=== PATIENT | female | born 1975 | race Caucasian/White ===

== ENCOUNTER 2019-05-17 02:26 | Emergency (ER) | payer BC ==
[2019-05-17] MEDS ORDERED: HYDROmorphone 0.5 MG/0.5 ML Syringe IVPUSH ONE (03:17)
[2019-05-17] MEDS ORDERED: Sodium Chloride 0.9% 1,000 ML IV SCH (03:30)
--- NOTE | 2019-05-17 04:24 | CRLCT ---
INDICATION: Suprapubic pain TECHNIQUE: CT abdomen and pelvis without contrast. COMPARISON: None. FINDINGS: Lower chest: Unremarkable. Liver: Normal in size and attenuation. No masses. Gallbladder and bile ducts: No stones or inflammation. No biliary dilatation. Pancreas: Unremarkable. No mass or inflammation. Spleen: Normal in size. No masses. Adrenal glands: Normal in size. No nodules. Kidneys: Normal in contour without evidence of hydronephrosis. Nonobstructing 3 millimeter stone lower pole left kidney. GI tract: The stomach is unremarkable. There are no dilated loops of large or small intestine. Appendix is seen and is unremarkable. Vasculature: Unremarkable. Pelvis: Bladder is unremarkable. Uterus is anteverted. Minimal fat containing left indirect inguinal hernia. Bones: Unremarkable for age. IMPRESSION: 1. Nephrolithiasis without evidence of ureteral stone or hydronephrosis. 2. Small fat containing left indirect inguinal hernia. Please note that all CT scans at this facility use dose modulation, iterative reconstruction, and/or weight-based dosing when appropriate to reduce radiation dose to as low as reasonably achievable. Dictated by Jamal Kam MD @ May 17 2019 4:17AM Signed by Dr. Jamal Kam @ May 17 2019 4:22AM
[2019-05-17] MEDS ORDERED: cefTRIAXone 1 GM in Sodium Chloride 0.9% 50 ML IV ONE (04:38)
[2019-05-17] MEDS ORDERED: Ketorolac 30 MG/ML SDV IVPUSH ONE (04:47)
--- NOTE | 2019-05-17 04:52 | EDM.PDOC ---
ED HPI GENERAL MEDICAL PROBLEM - General Chief Complaint: Genitourinary Problem Stated Complaint: UTI? KIDNEY STONE? Time Seen by Provider: 05/17/19 03:25 Source of Information: Reports: Patient History Limitations: Reports: No Limitations - History of Present Illness INITIAL COMMENTS - FREE TEXT/NARRATIVE: pt is having supra pupic pain which came on very suddenly. This pain was quite severe at one pint/ It dfinitely gets worse when she voids. Onset: Today, Sudden Duration: Hour(s): Location: Reports: Abdomen Associated Symptoms: Reports: Other (pt did see specks of blood in the urine. 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 Suprapubic Pain Score (Numeric/FACES): 1 - Related Data Allergies Allergy/AdvReac Type Severity Reaction Status Date / Time No Known Allergies Allergy Verified 05/17/19 03:17 Home Meds: Home Meds Acetaminophen [Tylenol Extra Strength] 1,000 mg PO ASDIRECTED PRN 05/17/19 [ History] Ibuprofen 400 mg PO ASDIRECTED 05/17/19 [History] Past Medical History Genitourinary History: Reports: Renal Calculus - Infectious Disease History Infectious Disease History: Reports: Chicken Pox Social & Family History - Tobacco Use Smoking Status *Q: Never Smoker Second Hand Smoke Exposure: No - Caffeine Use Caffeine Use: Reports: None - Recreational Drug Use Recreational Drug Use: No ED ROS GENERAL - Review of Systems Review Of Systems: See Below Constitutional: Reports: No Symptoms HEENT: Reports: No Symptoms Respiratory: Reports: No Symptoms Cardiovascular: Reports: No Symptoms Endocrine: Reports: No Symptoms GI/Abdominal: Reports: Abdominal Pain, Other (pain in supra pupic area. ) : Reports: Dysuria, Frequency, Urgency Musculoskeletal: Reports: No Symptoms ED EXAM, RENAL/ - Physical Exam Exam: See Below Text/Narrative:: pt arrived with supra pupic pain. She did see some specks of blood in the urine. Exam Limited By: No Limitations General Appearance: Alert, Anxious, Moderate Distress Ears: Normal TMs Nose: Normal Inspection Throat/Mouth: Normal Inspection Head: Atraumatic Neck: Normal Inspection Respiratory/Chest: No Respiratory Distress Cardiovascular: Regular Rate, Rhythm GI/Abdominal: Other (pt is having pain n the suprapupic area. i) (Female) Exam: Deferred Rectal (Female) Exam: Deferred Back Exam: Normal Inspection Extremities: Normal Inspection Neurological: Alert, Oriented, Normal Cognition Course - Vital Signs Last Recorded V/S: Last Vital Signs Temp 35.6 C 05/17/19 04:26 Pulse 94 05/17/19 04:26 Resp 14 05/17/19 04:26 BP 115/65 05/17/19 04:26 Pulse Ox 98 05/17/19 04:26 - Orders/Labs/Meds Orders: Active Orders 24 hr Category Date Time Status CULTURE URINE [RM] Stat Lab 05/17/19 04:39 Ordered Sodium Chloride 0.9% [Normal Saline] 1,000 ml Med 05/17/19 03:30 Active IV ASDIRECTED cefTRIAXone [Rocephin] 1 gm Med 05/17/19 04:38 Active Sodium Chloride 0.9% [Normal Saline] 50 ml IV ONETIME Medication Orders Sodium Chloride (Normal Saline) 1,000 mls @ 999 mls/hr IV ASDIRECTED DELTA Last Admin: 05/17/19 03:47 Dose: 999 mls/hr Ceftriaxone Sodium 1 gm/ (Sodium Chloride) 50 mls @ 100 mls/hr IV ONETIME ONE Stop: 05/17/19 05:07 Labs: Laboratory Tests 05/17/19 05/17/19 05/17/19 Range/Units 02:42 03:38 03:38 WBC 11.1 H (4.5-11.0) K/uL RBC 4.47 (3.30-5.50) M/uL Hgb 13.5 (12.0-15.0) g/dL Hct 41.3 (36.0-48.0) % MCV 92 (80-98) fL MCH 30 (27-31) pg MCHC 33 (32-36) % Plt Count 259 (150-400) K/uL Neut % (Auto) 74 H (36-66) % Lymph % (Auto) 17 L (24-44) % [place] % (Auto) 8 H (2-6) % Eos % (Auto) 2 (2-4) % Baso % (Auto) 0 (0-1) % Sodium 145 (140-148) mmol/L Potassium 3.5 L (3.6-5.2) mmol/L Chloride 107 (100-108) mmol/L Carbon Dioxide 31 (21-32) mmol/L Anion Gap 10.5 (5.0-14.0) mmol/L BUN 6 L (7-18) mg/dL Creatinine 0.8 (0.6-1.0) mg/dL Est Cr Clr Drug Dosing 73.46 mL/min Estimated GFR (MDRD) > 60 (>60) Glucose 106 (74-106) mg/dL Calcium 8.6 (8.5-10.1) mg/dL Total Bilirubin 0.4 (0.2-1.0) mg/dL AST 27 (15-37) U/L ALT 44 (12-78) U/L Alkaline Phosphatase 55 (46-116) U/L Total Protein 6.9 (6.4-8.2) g/dL Albumin 3.4 (3.4-5.0) g/dL Globulin 3.5 (2.3-3.5) g/dL Albumin/Globulin Ratio 1.0 L (1.2-2.2) Urine Color Yellow Urine Appearance Slightly cloudy Urine pH 8.0 (4.5-8.0) Ur Specific [place] 1.005 L (1.008-1.030) Urine Protein Negative (NEGATIVE) mg/dL Urine Glucose (UA) Normal (NEGATIVE) mg/dL Urine Ketones Negative (NEGATIVE) mg/dL Urine Occult Blood Large (NEGATIVE) Urine Nitrite Negative (NEGATIVE) Urine Bilirubin Negative (NEGATIVE) Urine Urobilinogen Normal (NORMAL) mg/dL Ur Leukocyte Esterase Large (NEGATIVE) Urine RBC 5-10 H (0-5) Urine WBC 0-5 (0-5) Ur Epithelial Cells Few Amorphous Sediment Not seen Urine Bacteria Few Urine Mucus Rare Meds: Medications Generic Name Dose Route Start Last Admin Trade Name Freq PRN Reason Stop Dose Admin Sodium Chloride 1,000 mls @ 999 mls/hr 05/17/19 03:30 05/17/19 03:47 Normal Saline IV 999 mls/hr ASDIRECTED DELTA Administration Ceftriaxone Sodium 1 gm/ 50 mls @ 100 mls/hr 05/17/19 04:38 Sodium Chloride IV 05/17/19 05:07 ONETIME ONE Discontinued Medications Generic Name Dose Route Start Last Admin Trade Name Freq PRN Reason Stop Dose Admin Hydromorphone HCl 0.5 mg 05/17/19 03:17 05/17/19 03:48 Dilaudid IVPUSH 05/17/19 03:18 0.5 mg ONETIME ONE Administration - Re-Assessments/Exams Free Text/Narrative Re-Assessment/Exam: 05/17/19 04:50 pt had a liter of fluid, she was given dilaudid .5. She was more comfortable. She had a cat scan which shows a 3 mm stone in the lower pole of the left kidney. She was given rocephen 1 gm and torodol iv 30 mg. Departure - Departure Time of Disposition: 04:51 Disposition: Home, Self-Care 01 Condition: Fair Clinical Impression: UTI (urinary tract infection), Renal calculus, left - Discharge Information Referrals: PCP,None [Primary Care Provider] - Care Plan Goals: push fluids, torodol 10 mg q6h prn for pain, cipro 500mg bid for 7 days. - My Orders Last 24 Hours: My Active Orders 05/17/19 03:30 Sodium Chloride 0.9% [Normal Saline] 1,000 ml IV ASDIRECTED 05/17/19 04:38 cefTRIAXone [Rocephin] 1 gm Sodium Chloride 0.9% [Normal Saline] 50 ml IV ONETIME 05/17/19 04:39 CULTURE URINE [RM] Stat - Assessment/Plan Last 24 Hours: My Active Orders 05/17/19 03:30 Sodium Chloride 0.9% [Normal Saline] 1,000 ml IV ASDIRECTED 05/17/19 04:38 cefTRIAXone [Rocephin] 1 gm Sodium Chloride 0.9% [Normal Saline] 50 ml IV ONETIME 05/17/19 04:39 CULTURE URINE [RM] Stat
== END 2019-05-17 05:24 | disposition home or self-care (01) ==
LOC: JP.ED 02:26
DX: N20.2 Calculus of kidney with calculus of ureter (principal); N39.0 Urinary tract infection, site not specified
CPT/HCPCS: 36415; 74176; 80053; 81001; 85025; 87086; 87088; 87186; 96361; 96365; 96375; 99284; J0696; J1170; J1885; J7030; J7050